=== PATIENT | male | born 1945 | race Caucasian/White ===

== ENCOUNTER 2019-08-29 17:10 | Emergency (ER) | payer MEDICARE, OTHER ==
[2019-08-29] MEDS ORDERED: Ondansetron 4 MG Tab.DIS PO ONE (18:10)
--- NOTE | 2019-08-29 18:16 | EDM.PDOC ---
ED HPI GENERAL MEDICAL PROBLEM - General Chief Complaint: General Stated Complaint: FEVER Time Seen by Provider: 08/29/19 18:00 Source of Information: Reports: Patient, Family History Limitations: Reports: No Limitations - History of Present Illness INITIAL COMMENTS - FREE TEXT/NARRATIVE: 73-year-old male presents to the emergency room feeling ill for the last 5 hours. He felt fine this morning, went to work, did not feel like he got overheated but by noon he was starting to feel off and somewhat weak. Shortly after noon he became more nauseated, lightheaded, and felt he needed to go home. He also had an episode of diaphoresis but no chills. Over the next 3 hours he had 3 emesis, very rancid but no bleeding and no pain. He has had no diarrhea. His daughter then checked his temperature and it was "almost 104" so she gave him 2 aspirin and brought him in. He now feels fairly good lying down, his temperature is normal and vitals are normal. Other than some shoulder and neck pain earlier today which is intermittent and chronic, he has had no pain. Denies shortness of breath, cough, abdominal pain. No history of any surgery, he is very healthy for his age and still works full-time. 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 Onset: Sudden (Symptoms started fairly suddenly about 6 hours ago) Associated Symptoms: Reports: Diaphoresis, Fever/Chills, Malaise, Nausea/Vomiting, Weakness. Denies: Confusion, Chest Pain, Cough, Headaches, Shortness of Breath Bilateral Shoulder Pain Score (Numeric/FACES): 7 - Related Data Allergies Allergy/AdvReac Type Severity Reaction Status Date / Time No Known Allergies Allergy Verified 08/29/19 17:57 Home Meds: Home Meds Allopurinol [Zyloprim] 500 mg PO DAILY 08/29/19 [History] Losartan [Cozaar] 12.5 mg PO DAILY 08/29/19 [History] Past Medical History HEENT History: Reports: Impaired Vision Gastrointestinal History: Reports: Irritable Bowel Syndrome Hematologic History: Reports: Other (See Below) Other Hematologic History: cll - Infectious Disease History Infectious Disease History: Reports: Chicken Pox, Measles, Mumps Social & Family History - Tobacco Use Smoking Status *Q: Never Smoker - Caffeine Use Caffeine Use: Reports: Coffee - Recreational Drug Use Recreational Drug Use: No ED ROS GENERAL - Review of Systems Review Of Systems: See Below Constitutional: Reports: Fever, Malaise, Decreased Appetite HEENT: Reports: No Symptoms Respiratory: Denies: Shortness of Breath, Pleuritic Chest Pain, Cough Cardiovascular: Reports: Lightheadedness. Denies: Chest Pain, Dyspnea on Exertion, Palpitations Endocrine: Denies: Fatigue GI/Abdominal: Reports: Nausea, Vomiting. Denies: Abdominal Pain, Diarrhea Musculoskeletal: Reports: Neck Pain, Shoulder Pain (Bilateral) Skin: Reports: Pallor, Diaphoresis Neurological: Reports: Dizziness, Weakness. Denies: Confusion, Headache, Paresthesia Psychiatric: Reports: No Symptoms ED EXAM, GENERAL - Physical Exam Exam: See Below Exam Limited By: No Limitations General Appearance: Alert, No Apparent Distress Eye Exam: Bilateral Eye: Normal Inspection Throat/Mouth: Normal Inspection Head: Atraumatic Neck: Normal Inspection, Supple Respiratory/Chest: No Respiratory Distress, Lungs Clear Cardiovascular: Regular Rate, Rhythm, Systolic Murmur (Fairly pronounced systolic murmur which has been there his whole life) GI/Abdominal: Normal Bowel Sounds, Soft, Non-Tender Extremities: Normal Inspection. No: Pedal Edema Neurological: Alert, Oriented, No Motor/Sensory Deficits Psychiatric: Normal Affect, Normal Mood Skin Exam: Warm, Dry Course - Vital Signs Last Recorded V/S: Last Vital Signs Temp 98.4 F 08/29/19 19:36 Pulse 99 08/29/19 17:56 Resp 20 08/29/19 17:56 BP 118/79 08/29/19 17:56 Pulse Ox 92 L 08/29/19 17:56 - Orders/Labs/Meds Labs: Laboratory Tests 08/29/19 08/29/19 Range/Units 18:15 18:20 WBC 8.0 (4.5-11.0) K/uL RBC 4.91 (4.30-5.90) M/uL Hgb 15.5 H (12.0-15.0) g/dL Hct 46.1 (40.0-54.0) % MCV 94 (80-98) fL MCH 32 H (27-31) pg MCHC 34 (32-36) % Plt Count 181 (150-400) K/uL Neut % (Auto) 75 H (36-66) % Lymph % (Auto) 12 L (24-44) % [place] % (Auto) 13 H (2-6) % Eos % (Auto) 0 L (2-4) % Baso % (Auto) 0 (0-1) % Sodium 140 (140-148) mmol/L Potassium 3.6 (3.6-5.2) mmol/L Chloride 103 (100-108) mmol/L Carbon Dioxide 24 (21-32) mmol/L Anion Gap 13.0 (5.0-14.0) mmol/L BUN 14 (7-18) mg/dL Creatinine 1.0 (0.8-1.3) mg/dL Est Cr Clr Drug Dosing 67.93 mL/min Estimated GFR (MDRD) > 60 (>60) Glucose 194 H (74-106) mg/dL Calcium 8.4 L (8.5-10.1) mg/dL Total Bilirubin 0.7 (0.2-1.0) mg/dL AST 48 H (15-37) U/L ALT 43 (12-78) U/L Alkaline Phosphatase 89 (46-116) U/L Troponin I 0.074 H* (0.000-0.056) ng/mL Total Protein 6.6 (6.4-8.2) g/dL Albumin 3.3 L (3.4-5.0) g/dL Globulin 3.3 (2.3-3.5) g/dL Albumin/Globulin Ratio 1.0 L (1.2-2.2) Meds: Medications Discontinued Medications Generic Name Dose Route Start Last Admin Trade Name Freq PRN Reason Stop Dose Admin Ondansetron HCl 4 mg 08/29/19 18:10 08/29/19 18:22 Zofran Odt PO 08/29/19 18:11 4 mg ONETIME ONE Administration - Re-Assessments/Exams Free Text/Narrative Re-Assessment/Exam: 08/29/19 18:16 Patient will be given 4 mg of sublingual Zofran, CBC CMP and troponin obtained. Patient is hydrated, IV fluids not necessary at this time. 08/29/19 19:14 Patient was asymptomatic while in the emergency room, his troponin returned 0.074 which is just barely above the upper limits of normal. This should have been significantly higher if it was infarction as his symptoms started 5 to 6 hours ago. After the remainder of his labs returned, the patient ambulated around the halls without any difficulty and felt fine. He was given 5 additional doses of Zofran and will return tomorrow if not improving satisfactorily. Departure - Departure Time of Disposition: 19:39 Disposition: Home, Self-Care 01 Clinical Impression: Nausea and vomiting Qualifiers: Vomiting type: unspecified Vomiting Intractability: unspecified Qualified Code(s): R11.2 - Nausea with vomiting, unspecified - Discharge Information Instructions: Nausea and Vomiting, Adult, [id number] Referrals: Raji Taylor SOLID PLASTERER [Primary Care Provider] - Forms: ED Department Discharge Care Plan Goals: Use Zofran every 6-8 hours if needed for nausea vomiting, return anytime if worsening such as persistent chest pain, shortness of breath, recurring fevers or chills or other concerns. Sepsis Event Note (ED) - Evaluation Sepsis Screening Result: Possible Sepsis Risk - Focused Exam Vital Signs: Vital Signs Temp Pulse Resp BP Pulse Ox 08/29/19 19:36 98.4 F 08/29/19 17:56 99.6 F 99 20 118/79 92 L 08/29/19 17:52 99.6 F 99 20 118/79 92 L
== END 2019-08-29 19:40 | disposition home or self-care (01) ==
LOC: JP.ED 17:10
DX: R11.2 Nausea with vomiting, unspecified (principal); Z79.899 Other long term (current) drug therapy
CPT/HCPCS: 36415; 80053; 84484; 85025; 99284; A9270; 99283

== ENCOUNTER 2019-08-31 00:15 | Emergency (ER) | payer OTHER ==
[2019-08-31] MEDS: Sodium Chloride 0.9% 1,000 ML IV SCH ×2 (00:30→00:50)
[2019-08-31] MEDS: Aspirin 81 MG Tab.Chew PO ONE (00:35)
[2019-08-31] MEDS: Heparin Sodium 5,000 Units/ML Vial IVPUSH ONE (00:37)
--- NOTE | 2019-08-31 00:39 | EDM.PDOC ---
ED HPI GENERAL MEDICAL PROBLEM - General Chief Complaint: Chest Pain Stated Complaint: REVIST ILL Time Seen by Provider: 08/31/19 00:15 Source of Information: Reports: Patient History Limitations: Reports: No Limitations - History of Present Illness INITIAL COMMENTS - FREE TEXT/NARRATIVE: 73-year-old male who developed upper left chest pain at 6 PM this evening, with diaphoresis, chills, and nausea. He felt like his heart was racing so came up to the hospital. He was seen in the emergency room yesterday with nausea and vomiting and a fever spike, but no shortness of breath or chest pain and responded well to fluids and antinausea medicine. He did have a troponin that was borderline elevated yesterday but no other findings. I did call him at home today and he said he felt well, had a good day but was a little tired. However about 2 hours after the phone call he developed fairly sudden upper left chest discomfort and neck discomfort and could not get comfortable. This was a new symptom from yesterday. He then felt like his heart was racing and he became very diaphoretic so they transported him urgently to the emergency room by private car. On arrival he was hypotensive, tachycardic, diaphoretic and complaining of upper left chest and neck discomfort. No nausea and vomiting. Onset: Sudden (Symptoms started fairly suddenly at 6 PM) Location: Reports: Neck, Chest Associated Symptoms: Reports: Chest Pain, Diaphoresis, Malaise, Weakness. Denies: Fever/Chills, Nausea/Vomiting, Shortness of Breath Left Shoulder Pain Score (Numeric/FACES): 10 chest pain Pain Score (Numeric/FACES): 7 - Related Data Allergies Allergy/AdvReac Type Severity Reaction Status Date / Time No Known Allergies Allergy Verified 08/31/19 00:26 Home Meds: Home Meds Allopurinol [Zyloprim] 500 mg PO DAILY 08/29/19 [History] Losartan [Cozaar] 12.5 mg PO DAILY 08/29/19 [History] Past Medical History HEENT History: Reports: Impaired Vision Gastrointestinal History: Reports: Irritable Bowel Syndrome Hematologic History: Reports: Other (See Below) Other Hematologic History: cll - Infectious Disease History Infectious Disease History: Reports: Chicken Pox, Measles, Mumps Social & Family History - Caffeine Use Caffeine Use: Reports: Coffee ED ROS GENERAL - Review of Systems Review Of Systems: See Below Constitutional: Reports: Chills, Malaise HEENT: Reports: No Symptoms Respiratory: Denies: Shortness of Breath, Pleuritic Chest Pain, Cough Cardiovascular: Reports: Chest Pain (Upper left chest pain), Palpitations GI/Abdominal: Reports: No Symptoms Skin: Reports: Pallor, Diaphoresis Neurological: Reports: Dizziness, Weakness. Denies: Headache Psychiatric: Reports: No Symptoms ED EXAM, GENERAL - Physical Exam Exam: See Below Exam Limited By: No Limitations General Appearance: Alert, Moderate Distress (Patient looks very uncomfortable, has active upper chest discomfort and diaphoresis) Head: Atraumatic Neck: Supple, Non-Tender Respiratory/Chest: Lungs Clear Cardiovascular: Regular Rate, Rhythm, Tachycardia GI/Abdominal: Soft, Non-Tender Extremities: Normal Inspection. No: Pedal Edema Neurological: Alert, Oriented Psychiatric: Normal Affect, Normal Mood Skin Exam: Diaphoretic EKG INTERPRETATION Rhythm: NSR Rate (Beats/Min): 142 ST-T: Elevated (Slightly ST elevation in the inferior leads, reciprocal changes in the anterior leads) Course - Vital Signs Last Recorded V/S: Last Vital Signs Temp 96.7 F L 08/31/19 01:11 Pulse 144 H 08/31/19 01:11 Resp 11 L 08/31/19 01:11 BP 81/55 L 08/31/19 01:11 Pulse Ox 95 08/31/19 01:11 - Orders/Labs/Meds Orders: Active Orders 24 hr Category Date Time Status EKG Documentation Completion [RC] ASDIRECTED Care 08/31/19 00:26 Active Chest 1V Frontal [CR] Stat Exams 08/31/19 00:25 Taken CULTURE BLOOD [BC] Urgent Lab 08/31/19 00:30 Received CULTURE BLOOD [BC] Urgent Lab 08/31/19 00:37 Received Blood Culture x2 Reflex Set [OM.PC] Urgent Oth 08/31/19 00:25 Ordered EKG 12 Lead [EK] Routine Ther 08/31/19 00:25 Ordered Labs: Laboratory Tests 08/31/19 08/31/19 08/31/19 Range/Units 00:37 00:37 00:37 WBC 15.0 H (4.5-11.0) K/uL RBC 4.93 (4.30-5.90) M/uL Hgb 15.7 H (12.0-15.0) g/dL Hct 46.2 (40.0-54.0) % MCV 94 (80-98) fL MCH 32 H (27-31) pg MCHC 34 (32-36) % Plt Count 178 (150-400) K/uL Neut % (Auto) 73 H (36-66) % Lymph % (Auto) 14 L (24-44) % [place] % (Auto) 12 H (2-6) % Eos % (Auto) 0 L (2-4) % Baso % (Auto) 0 (0-1) % Sodium 139 L (140-148) mmol/L Potassium 3.6 (3.6-5.2) mmol/L Chloride 101 (100-108) mmol/L Carbon Dioxide 25 (21-32) mmol/L Anion Gap 16.6 H (5.0-14.0) mmol/L BUN 19 H (7-18) mg/dL Creatinine 1.4 H (0.8-1.3) mg/dL Est Cr Clr Drug Dosing 48.52 mL/min Estimated GFR (MDRD) 50 L (>60) Glucose 228 H (74-106) mg/dL Lactic Acid 2.5 H (0.4-2.0) mmol/L Calcium 8.7 (8.5-10.1) mg/dL Total Bilirubin 1.2 H D (0.2-1.0) mg/dL AST 73 H (15-37) U/L ALT 40 (12-78) U/L Alkaline Phosphatase 94 (46-116) U/L Troponin I 2.417 H* (0.000-0.056) ng/mL Total Protein 6.6 (6.4-8.2) g/dL Albumin 3.2 L (3.4-5.0) g/dL Globulin 3.4 (2.3-3.5) g/dL Albumin/Globulin Ratio 0.9 L (1.2-2.2) Meds: Medications Discontinued Medications Generic Name Dose Route Start Last Admin Trade Name Freq PRN Reason Stop Dose Admin Aspirin 324 mg 08/31/19 00:30 08/31/19 00:35 Aspirin PO 08/31/19 00:31 324 mg ONETIME ONE Administration Heparin Sodium (Porcine) 5,000 units 08/31/19 00:31 08/31/19 00:37 Heparin Sodium IVPUSH 08/31/19 00:32 5,000 units ONETIME ONE Administration Nitroglycerin/Dextrose 25 mg in 250 mls @ 6 mls/hr 08/31/19 00:45 Nitroglycerin 25 Mg/D5w 250 Ml IV TITRATE RAÚL Protocol 10 MCG/MIN Sodium Chloride 1,000 mls @ 1,000 mls/hr 08/31/19 01:00 08/31/19 00:50 Normal Saline IV 1,000 mls/hr ASDIRECTED RAÚL Administration Sodium Chloride 1,000 mls @ 1,000 mls/hr 08/31/19 01:00 08/31/19 00:30 Normal Saline IV 1,000 mls/hr ASDIRECTED RAÚL Administration Heparin Sodium/Dextrose 25,000 units in 500 mls @ 20 mls/hr 08/31/19 01:15 08/31/19 01:16 Heparin 25,000 Units In D5w 500 Ml IV 1,000 units/hr TITRATE RAÚL 20 mls/hr Administration Protocol 1,000 UNITS/HR Heparin Sodium/Dextrose Confirm 08/31/19 01:10 08/31/19 01:17 Heparin 25,000 Units In D5w 500 Ml Administered 08/31/19 01:11 Not Given Dose 500 mls @ as directed .ROUTE .STK-MED ONE Morphine Sulfate 4 mg 08/31/19 00:30 08/31/19 01:33 Morphine IVPUSH 08/31/19 00:31 Not Given ONETIME ONE Ticagrelor 180 mg 08/31/19 00:40 08/31/19 01:13 Brilinta PO 08/31/19 00:41 180 mg ONETIME ONE Administration - Re-Assessments/Exams Free Text/Narrative Re-Assessment/Exam: 08/31/19 01:04 EKG shows some possible ischemic changes, and with his symptoms it was approached as a STEMI. He was given 324 mg of chewable aspirin, 2 IVs were started and nitroglycerin drip was ordered. Also 4 mg of IV morphine was ordered. However prior to the nitro and morphine being given, the patient became hypotensive so it was held. He was also given a 5000 unit heparin bolus, 180 mg of Brilinta, and cardiology consultation was obtained. CBC CMP troponin, and a 1 view chest x-ray and blood cultures were obtained. Urgent transfer by air to [facility] in [place] was arranged. Dr. Collazo, accepted the patient at 12:45 AM. Heparin at 1000 units an hour was started just prior to discharge. Critical care time was 1 hour. 08/31/19 01:17 Troponin returned at 2.417. White count was 15,000, it was normal yesterday. Departure - Departure Time of Disposition: 01:34 Disposition: DC/Tfer to Other 70 Clinical Impression: ST elevation (STEMI) myocardial infarction Qualifiers: Involved coronary artery: unspecified coronary artery Qualified Code(s): I21.3 - ST elevation (STEMI) myocardial infarction of unspecified site - Discharge Information Referrals: Raji Taylor MOLD CONSTRUCTION SUPERVISOR [Primary Care Provider] - Forms: ED Department Discharge Care Plan Goals: Patient was urgently transferred by air to [facility] for cardiology evaluation and acute coronary intervention for STEMI. Critical Care Note - Critical Care Note Total Time (mins): 60 Sepsis Event Note (ED) - Focused Exam Vital Signs: Vital Signs Temp Pulse Resp BP Pulse Ox 08/31/19 01:11 96.7 F L 144 H 11 L 81/55 L 95 08/31/19 01:08 142 H 11 L 76/54 L 93 L 08/31/19 00:57 142 H 12 81/50 L 93 L 08/31/19 00:51 96.1 F L 142 H 12 140/115 H 96 08/31/19 00:48 96.6 F L 143 H 9 L 81/48 L 91 L 08/31/19 00:41 140 H 11 L 74/29 L 95 08/31/19 00:40 141 H 9 L 50/34 L 92 L 08/31/19 00:39 140 H 9 L 62/42 L 92 L 08/31/19 00:15 96.1 F L 142 H 12 140/115 H 96 - My Orders Last 24 Hours: My Active Orders 08/31/19 00:25 Chest 1V Frontal [CR] Stat Blood Culture x2 Reflex Set [OM.PC] Urgent EKG 12 Lead [EK] Routine 08/31/19 00:26 EKG Documentation Completion [RC] ASDIRECTED 08/31/19 00:30 CULTURE BLOOD [BC] Urgent 08/31/19 00:37 CULTURE BLOOD [BC] Urgent - Assessment/Plan Last 24 Hours: My Active Orders 08/31/19 00:25 Chest 1V Frontal [CR] Stat Blood Culture x2 Reflex Set [OM.PC] Urgent EKG 12 Lead [EK] Routine 08/31/19 00:26 EKG Documentation Completion [RC] ASDIRECTED 08/31/19 00:30 CULTURE BLOOD [BC] Urgent 08/31/19 00:37 CULTURE BLOOD [BC] Urgent
[2019-08-31] MEDS ORDERED: Nitroglycerin/D5W 25 MG/250 ML BOTTLE IV SCH (00:45)
[2019-08-31] MEDS: Ticagrelor 90 MG Tab PO ONE (01:13)
[2019-08-31] MEDS: Heparin Sodium/D5W 25,000 UNITS/500 ML BAG IV SCH (01:16)
[2019-08-31] MEDS: Heparin Sodium/D5W 500 ML ONE (01:17)
[2019-08-31] MEDS: Morphine 4 MG/ML Syringe IVPUSH ONE (01:33)
--- NOTE | 2019-08-31 09:08 | CR ---
CHEST: Portable 08/31/2019 at 1:08 AM CLINICAL HISTORY:Tachycardia, fevers COMPARISON:None FINDINGS: The heart size, pulmonary vascularity and hilar structures are normal. No infiltrate effusion or pneumothorax is seen. There are atherosclerotic changes in the aorta. IMPRESSION: No acute cardiopulmonary process.
== END 2019-08-31 01:15 | disposition other institution (70) ==
LOC: JP.ED 00:15
DX: I21.3 ST elevation (STEMI) myocardial infarction of unspecified site (principal); Z79.899 Other long term (current) drug therapy
CPT/HCPCS: 36415; 71045; 80053; 83605; 84484; 85025; 87040; 93005; 93010; 96374; 96376; 99291; A9270; J1644; J7030